=== PATIENT | male | born 1980 | race African-American/Black ===

== ENCOUNTER 2016-07-08 10:18 | Emergency (ER) | payer SELFPAY ==
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
[2016-07-08 12:40] VITALS: BP 133/79
== END 2016-07-08 12:40 | disposition home or self-care (01) ==
LOC: ER 10:18
DX: S71.101D Unspecified open wound, right thigh, subsequent encounter (principal); W33.0 Accidental rifle, shotgun and larger firearm discharge
CPT/HCPCS: 99282

== ENCOUNTER → 2016-12-12 | Outpatient (CLI) | payer MEDICAID ==
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
== END ==
LOC: OD 11:56
PROVIDERS: ATTEND Family Medicine
DX: S72.491 Other fracture of lower end of right femur (principal)

== ENCOUNTER 2017-01-17 19:53 | Emergency (ER) | payer MEDICAID ==
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
[2017-01-17] MEDS ORDERED: MORPHINE SULFATE IR 15 MG TABLET PO ONE (22:27)
--- NOTE | 2017-01-17 22:42 | RADIOLOGY REPORT (SQ) ---
EXAM DESCRIPTION: VENOUS UNILATERAL LOWER COMPLETED DATE/TIME: 01/17/2017 10:30 pm REASON FOR STUDY: Right lower extremity COMPARISON: None. TECHNIQUE: Dynamic and static grossman scale and color images acquired of the right leg venous system. S elected spectral images acquired with additional compression and augmentation maneuvers. The contrala teral common femoral vein and saphenofemoral junction were also imaged. Images stored on PACS. LIMITATIONS: None. FINDINGS: COMMON FEMORAL: Normal phasicity, compression and augmentation. No visualized echogenic ma terial on grossman scale. No defects on color images. FEMORAL: Normal compression and augmentation. No visualized echogenic material on grossman scale. No defe cts on color images. POPLITEAL: Normal compression, augmentation. No visualized echogenic material on grossman scale. No defec ts on color images. CALF VESSELS: Normal compression, augmentation. No visualized echogenic material on grossman scale. No de fects on color images. GSV and SSV: Normal compression, augmentation. No visualized echogenic material on grossman scale. No def ects on color images. ANY DEEP VENOUS INSUFFICIENCY: Not evaluated. ANY EVIDENCE OF POPLITEAL CYST: No. OTHER: No other significant finding. CONTRALATERAL COMMON FEMORAL VEIN AND SAPHENOFEMORAL JUNCTION: Normal phasicity, compression and augmentation. No visualized echogenic material on grossman scale. No de fects on color images. IMPRESSION: NO EVIDENCE OF DVT OR SVT IN THE RIGHT LEG. TECHNICAL DOCUMENTATION: JOB ID: [id number] [employer]- All Rights Reserved
[2017-01-17 22:45] LABS: ABSOLUTE BASOPHILS # (AUTO) 0.1 10^3/uL (0.0-0.2); ABSOLUTE EOSINOPHILS # (AUTO) 0.7 10^3/uL (0.0-0.6); ABSOLUTE LYMPHOCYTES (AUTO) 2.1 10^3/uL (0.5-4.7); ABSOLUTE MONOCYTES (AUTO) 0.7 10^3/uL (0.1-1.4); ABSOLUTE NEUT (AUTO) 4.6 10^3/uL (1.7-8.2); BASOPHILS % (AUTO) 0.9 % (0-2); EOSINOPHILS % (AUTO) 8.6 % (0-6); HEMATOCRIT 41.6 % (37.9-51.0); HEMOGLOBIN 13.6 g/dL (13.5-17.0); HGB HCT DIFFERENCE -0.8; LYMPHOCYTES % (AUTO) 25.5 % (13-45); MEAN CORPUSCULAR HGB CONC 32.8 g/dL (32.0-36.0); MEAN CORPUSCULAR VOLUME 82 fl (80-97); MONOCYTES % (AUTO) 8.1 % (3-13); RED BLOOD COUNT 5.05 10^6/uL (4.35-5.55); RED CELL DISTRIBUTION WIDTH 16.9 % (11.5-14.0); SEGMENTED NEUTROPHILS % (AUTO) 56.9 % (42-78); WHITE BLOOD COUNT 8.1 10^3/uL (4.0-10.5)
[2017-01-17 23:02] LABS: ALANINE AMINOTRANSFERASE 46 U/L (21-72); ALBUMIN 4.2 g/dL (3.5-5.0); ALKALINE PHOSPHATASE 169 U/L (38-126); ANION GAP 11 (5-19); ASPARTATE AMINO TRANSFERASE 28 U/L (17-59); BILIRUBIN,DIRECT 0.4 mg/dL (0.0-0.4); BILIRUBIN,TOTAL 0.4 mg/dL (0.2-1.3); BLOOD UREA NITROGEN 10 mg/dL (7-20); CALCIUM 9.5 mg/dL (8.4-10.2); CARBON DIOXIDE 27 mmol/L (22-30); CHLORIDE 103 mmol/L (98-107); CREATININE RESULT 0.95 mg/dL (0.52-1.25); GLUCOSE 103 mg/dL (75-110); POTASSIUM 4.2 mmol/L (3.6-5.0); SODIUM 141.3 mmol/L (137-145); TOTAL PROTEIN 7.9 g/dL (6.3-8.2)
[2017-01-18 00:06] VITALS: BP 133/77
== END 2017-01-18 00:03 | disposition home or self-care (01) ==
LOC: ER 19:53
DX: M79.89 Other specified soft tissue disorders (principal); M79.604 Pain in right leg; G89.29 Other chronic pain
CPT/HCPCS: 36415; 80053; 85025; 93971; 99284

== ENCOUNTER → 2017-02-25 | Outpatient (CLI) | payer MEDICAID ==
[2017-02-25 13:50] LABS: HEMATOCRIT 37.5 % (37.9-51.0); HEMOGLOBIN 12.3 g/dL (13.5-17.0); HGB HCT DIFFERENCE -0.6; MEAN CORPUSCULAR HEMOGLOBIN 26.8 pg (27.0-33.4); MEAN CORPUSCULAR HGB CONC 32.8 g/dL (32.0-36.0); MEAN CORPUSCULAR VOLUME 82 fl (80-97); RED BLOOD COUNT 4.59 10^6/uL (4.35-5.55); RED CELL DISTRIBUTION WIDTH 16.2 % (11.5-14.0); WHITE BLOOD COUNT 7.3 10^3/uL (4.0-10.5)
[2017-02-25 14:13] LABS: ALANINE AMINOTRANSFERASE 43 U/L (21-72); ALBUMIN 3.7 g/dL (3.5-5.0); ALKALINE PHOSPHATASE 149 U/L (38-126); ANION GAP 9 (5-19); ASPARTATE AMINO TRANSFERASE 25 U/L (17-59); BILIRUBIN,DIRECT 0.3 mg/dL (0.0-0.4); BILIRUBIN,TOTAL 0.4 mg/dL (0.2-1.3); BLOOD UREA NITROGEN 6 mg/dL (7-20); C-REACTIVE PROTEIN 65.5 mg/L (<10.0); CALCIUM 9.3 mg/dL (8.4-10.2); CARBON DIOXIDE 29 mmol/L (22-30); CHLORIDE 102 mmol/L (98-107); CREATININE RESULT 0.82 mg/dL (0.52-1.25); GLUCOSE 84 mg/dL (75-110); POTASSIUM 4.3 mmol/L (3.6-5.0); SODIUM 139.9 mmol/L (137-145)
[2017-02-25 14:31] LABS: ERYTHROCYTE SEDIMENTATION RATE 40 mm/hr (0-15)
== END ==
LOC: OD 12:28
PROVIDERS: ATTEND Physician Assistant Surgical
DX: T81.4XXD Infection following a procedure, subsequent encounter (principal)
CPT/HCPCS: 36415; 80053; 85027; 85652; 86140; 87070; 87075; 87205

== ENCOUNTER → 2017-03-05 | Outpatient (CLI) | payer MEDICAID ==
--- NOTE | 2017-03-05 14:04 | RADIOLOGY REPORT (SQ) ---
EXAM DESCRIPTION: NM 3 PHASE BONE SCAN COMPLETED DATE/TIME: 03/05/2017 1:16 pm REASON FOR STUDY: INFECTION FOLLOWING A PROCEDURE, SUBSEQUENT ENCOUNTER T81.4XXD INFECTION FOLLOWIN G A PROCEDURE, SUBSEQUENT ENCOUNT COMPARISON: Radiographs of the right femur from 12/12/2016. RADIONUCLIDE AND DOSE: 21.0 millicuries Tc99m MDP. The route of agent administration: Intravenous. ADDITIONAL DRUGS AND DOSES: None. TECHNIQUE: Following injection of the radiopharmaceutical, serial blood flow images acquired. Equil ibrium blood pool images then acquired. Routine delayed images at 3 hour acquired of the areas of cl inical concern with additional focused images as needed. AREA OF INTEREST: Right lower extremity LIMITATIONS: None. FINDINGS: VASCULAR FLOW IMAGES: No asymmetry or focal areas of hyperemia. BLOOD POOL IMAGES: Slight increased asymmetric blood pooling may be present about the right knee. BONES: Increased bone turnover along the proximal 3rd of the right femur. This corresponds to extens smooth posttraumatic/postoperative change. Presumably related to ongoing bone remodeling at the site of injury and surgery. There is also slight increased uptake about the right knee. Some of this could be related to the distal femoral nail with associated on going bone turnover during healing. Some u ptake also seen in the tibia as well, however. No fracture or lytic lesion here. Findings may parti ally be degenerative in addition to postoperative. KIDNEYS: Kidneys not imaged. OTHER: No other significant finding. IMPRESSION: 1. Bone turnover at the site of previous extensive right proximal femur trauma and surg tian. Apparently, the last surgery was in May, and uptake only on delayed phase imaging probably si mply represents ongoing healing. 2. Uptake about the right knee, some of which may also be postopera tive. COMMENT: Quality measure 147: Current bone scan is compared with any available plain radiographs, p rior bone scans, and CT/MRI. TECHNICAL DOCUMENTATION: JOB ID: [id number] [employer]- All Rights Reserved
== END ==
LOC: RAD 08:16
PROVIDERS: ATTEND Physician Assistant Surgical
DX: T81.4XXD Infection following a procedure, subsequent encounter (principal)
CPT/HCPCS: 78315; A9561; Q9969

== ENCOUNTER 2018-10-20 11:02 | Emergency (ER) | payer MEDICAID, OTHER ==
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
[2018-10-20 12:18] LABS: ABSOLUTE BASOPHILS # (AUTO) 0.1 10^3/uL (0.0-0.2); ABSOLUTE EOSINOPHILS # (AUTO) 0.3 10^3/uL (0.0-0.6); ABSOLUTE LYMPHOCYTES (AUTO) 1.9 10^3/uL (0.5-4.7); ABSOLUTE MONOCYTES (AUTO) 0.5 10^3/uL (0.1-1.4); ABSOLUTE NEUT (AUTO) 4.9 10^3/uL (1.7-8.2); BASOPHILS % (AUTO) 0.9 % (0-2); EOSINOPHILS % (AUTO) 4.4 % (0-6); HEMATOCRIT 42.8 % (37.9-51.0); HEMOGLOBIN 13.8 g/dL (13.5-17.0); LYMPHOCYTES % (AUTO) 24.3 % (13-45); MEAN CORPUSCULAR HEMOGLOBIN 26.9 pg (27.0-33.4); MEAN CORPUSCULAR HGB CONC 32.4 g/dL (32.0-36.0); MEAN CORPUSCULAR VOLUME 83 fl (80-97); MONOCYTES % (AUTO) 6.7 % (3-13); PLATELET COUNT 334 10^3/uL (150-450); RED BLOOD COUNT 5.14 10^6/uL (4.35-5.55); RED CELL DISTRIBUTION WIDTH 17.8 % (11.5-14.0); SEGMENTED NEUTROPHILS % (AUTO) 63.7 % (42-78); TOTAL CELLS COUNTED % (AUTO) 100 %; WHITE BLOOD COUNT 7.6 10^3/uL (4.0-10.5)
[2018-10-20] MEDS ORDERED: HYDROCODONE/ACETAMINOPHEN 5-325 MG TABLET PO ONE (14:17)
[2018-10-20] MEDS ORDERED: AMOXICILLIN TR/POT CLAVULANATE 500-125 MG TAB PO ONE (14:17)
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
[2018-10-20 14:36] VITALS: BP 140/68
== END 2018-10-20 14:36 | disposition home or self-care (01) ==
LOC: ER 11:02
DX: T81.33XA Disruption of traumatic injury wound repair, initial encounter (principal); Y83.8 Other surgical procedures as the cause of abnormal reaction of the patient, or of later complication, without mention of misadventure at the time of the procedure; M79.651 Pain in right thigh; F17.210 Nicotine dependence, cigarettes, uncomplicated; Z71.6 Tobacco abuse counseling
CPT/HCPCS: 36415; 85025; 87070; 87075; 87077; 87205; 99283

== ENCOUNTER → 2019-02-01 | Outpatient (CLI) | payer MEDICAID ==
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
== END ==
LOC: OD 12:23
PROVIDERS: ATTEND Nurse Practitioner Family
DX: L97.119 Non-pressure chronic ulcer of right thigh with unspecified severity (principal)